=== PATIENT | female | born 1970 | race Caucasian/White ===

== ENCOUNTER 2019-02-10 17:51 | Inpatient (IN) | payer OTHER ==
[2019-02-10] MEDS ORDERED: HYDROCHLOROTHIA25 MG PO (18:12)
[2019-02-10 19:00] VITALS: BP 149/92
--- NOTE | 2019-02-10 19:08 | NUR ---
MENTAL HEALTH RN AT BEDSIDE FOR EVALUATION
[2019-02-10 19:18] LABS: BASOPHILS 0.1 % (0-2); EOSINOPHILS 0.1 % (0-7); HEMATOCRIT 39.8 % (36.0-48.0); HEMOGLOBIN 13.9 g/dL (12-16); IMMATURE GRANULOCYTES 0.3 % (0-5); LYMPHOCYTES 19.4 % (15-50); MCH 30.9 pg (26.0-34.0); MCHC 34.9 g/dL (31.0-37.0); MCV 88.4 fL (80.0-100.0); MEAN PLATELET VOLUME 9.8 fL (7.4-10.4); MONOCYTES 8.4 % (2-11); NEUTROPHILS 71.7 % (40-80); RDW 13.5 % (11.5-14.5); WBC 14.4 10x3/uL (4.8-10.8)
[2019-02-10 19:19] LABS: PLATELET COUNT 452 10x3/uL (130-400)
[2019-02-10 19:25] LABS: ALBUMIN 3.4 g/dL (3.4-5.0); ALKALINE PHOSPHATASE 94 U/L (46-116); ALT (SGPT) 32 U/L (10-68); BILIRUBIN - TOTAL 0.69 mg/dL (0.2-1.3); CALC OSMOLALITY 272 mosm/kg (275-300); CALCIUM 9.3 mg/dL (8.5-10.1); CARBON DIOXIDE 32.2 mmol/L (21.0-32.0); CHLORIDE - SERUM 94 mmol/L (98-107); CREATININE - SERUM 0.7 mg/dL (0.6-1.3); GLUCOSE 112 mg/dL (74-106); PROTEIN - SERUM 7.5 g/dL (6.4-8.2); SODIUM 137 mmol/L (136-145); UREA NITROGEN 6 mg/dL (7-18); eGFR NON AFRICAN AMERICAN > 90 mL/min (90-120)
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
[2019-02-10 19:58] LABS: COLOR STRAW (YELLOW)
[2019-02-10 19:59] LABS: APPEARANCE CLEAR (CLEAR); BILIRUBIN NEGATIVE (NEGATIVE); GLUCOSE NEGATIVE (NEGATIVE); KETONE SMALL mg/dL (NEGATIVE); NITRITE POSITIVE (NEGATIVE); PROTEIN NEGATIVE (NEGATIVE); SPECIFIC GRAVITY 1.005 (1.005-1.020); UROBILINOGEN NORMAL (NORMAL)
[2019-02-10 20:00] LABS: BACTERIA MANY /hpf (NONE SEEN); EPITHELIAL CELLS 0-5 /hpf (0-5); RED CELLS - URINE NONE SEEN /hpf (0-5); WHITE CELLS - URINE 0-5 /hpf (0-5)
--- NOTE | 2019-02-10 20:01 | NUR ---
FAMILY AT BEDSIDE. MENTAL HEALTH RN AT BEDSIDE WAITING FOR ONE ON ONE OBSERVATION TECH. PT LYING IN STRECHER EATING JELLO AND DRINKING WATER.
[2019-02-10 20:02] LABS: UDS - AMPHET NEGATIVE QUAL (NEGATIVE); UDS - BARB NEGATIVE QUAL (NEGATIVE); UDS - BENZO POSITIVE QUAL (NEGATIVE); UDS - COCAINE NEGATIVE QUAL (NEGATIVE); UDS - OPIATE NEGATIVE QUAL (NEGATIVE); UDS - PCP NEGATIVE QUAL (NEGATIVE); UDS - THC POSITIVE QUAL (NEGATIVE)
[2019-02-10 22:00] VITALS: BP 152/87
[2019-02-10 22:44] VITALS: BP 150/98; BMI 30.1
--- NOTE | 2019-02-10 22:58 | NUR ---
PT RECEIVED FROM ER. SITTER AT BEDSIDE. PT BELONGINGS CLOTHES AND PERSONAL ITEMS REMOVED AND PAPER SCRUBS APPLIED. VSS PT SLEEPING COMFORTABLY ALERT ORIENTED X4. RESTING COMFORTABLY WILL CONTINUE TO MONITOR
[2019-02-10 23:00] VITALS: BP 131/82
[2019-02-11] VITALS (24 sets, daily range): BP systolic 114–158; BP diastolic 62–113
--- NOTE | 2019-02-11 01:04 | NUR ---
POTASSIUM READ BACK 2.7 WILL ADM PER PROTOCL
[2019-02-11 03:29] LABS: BASOPHILS 0.1 % (0-2); EOSINOPHILS 0.4 % (0-7); HEMATOCRIT 39.3 % (36.0-48.0); HEMOGLOBIN 13.4 g/dL (12-16); IMMATURE GRANULOCYTES 0.3 % (0-5); LYMPHOCYTES 21.1 % (15-50); MCH 30.4 pg (26.0-34.0); MCHC 34.1 g/dL (31.0-37.0); MCV 89.1 fL (80.0-100.0); MEAN PLATELET VOLUME 9.9 fL (7.4-10.4); MONOCYTES 9.5 % (2-11); NEUTROPHILS 68.6 % (40-80); PLATELET COUNT 398 10x3/uL (130-400); RBC 4.41 10x6/uL (4.00-5.40); RDW 13.8 % (11.5-14.5); WBC 15.2 10x3/uL (4.8-10.8)
--- NOTE | 2019-02-11 03:31 | NUR ---
REASSESSMENT COMPLETE PER FLOW SHEET. VSS. NO NEW CHANGES WILL CONTINUE TO MONITOR
[2019-02-11 03:42] LABS: CALC OSMOLALITY 276 mosm/kg (275-300); CALCIUM 8.7 mg/dL (8.5-10.1); CARBON DIOXIDE 32.8 mmol/L (21.0-32.0); CHLORIDE - SERUM 100 mmol/L (98-107); CREATININE - SERUM 0.5 mg/dL (0.6-1.3); GLUCOSE 105 mg/dL (74-106); MAGNESIUM - SERUM 2.1 mg/dL (1.8-2.4); PHOSPHOROUS 3.2 mg/dL (2.5-4.9); POTASSIUM - SERUM 2.8 mmol/L (3.5-5.1); SODIUM 140 mmol/L (136-145); UREA NITROGEN 7 mg/dL (7-18); eGFR NON AFRICAN AMERICAN > 90 mL/min (90-120)
--- NOTE | 2019-02-11 05:45 | NUR ---
k+ replaced per protocol
--- NOTE | 2019-02-11 07:00 | NUR ---
REC'D REPORT AND RESUMED CARE, AAO VSS, DENIES PAIN OR SUICIDAL IDEATION AT THIS TIME, SELF REPOSITIONS, CALL LIGHT IN REACH, SITTER AT BEDSIDE
--- NOTE | 2019-02-11 09:00 | NUR ---
MORNING MEDS GIVEN PER NOV FLOWSHEET
--- NOTE | 2019-02-11 11:00 | NUR ---
INCONTINENT OF DIARRHEA STOOL, SKINCARE AND LINEN CHANGE COMPLETED BY IVANA LIRA GIVEN PER REQUEST, NOO OTHER ACUTE CHANGE FROM PREVIOUS
--- NOTE | 2019-02-11 15:00 | NUR ---
INCONTINENT OF DIARRHEA STOOL, SKINCARE AND LINEN CHANGE COMPLETED
--- NOTE | 2019-02-11 15:26 | NUR ---
DR FRAZIER HERE FOR EVAL, PATIENT WITH NEED INPATIENT PLACEMENT WHEN MEDICALLY STABLE
--- NOTE | 2019-02-11 16:45 | NUR ---
DINNER TRAY TO BEDSIDE, UP TO BEDSIDE FOR MEAL, INDEPENDENT WITH SET UP AND EATING
--- NOTE | 2019-02-11 17:30 | NUR ---
40 MEQ POTASSIUM TO BEDSIDE FOR 3.4 REPEAT POTASSIUM, BROKEN IN HALF FOR EASY SWALLOWING, CAUGHT PATIENT TRYING TO HIDE UNDER COVER WITHOUT TAKING, WATCH SWALLOW AND INSPECTED MOUTH AFTER, SITTER CONTINUES AT BEDSIDE
--- NOTE | 2019-02-11 19:30 | NUR ---
ASSESSMENT PER FLOWSHEET, PT ALERT, ABLE TO ANSWER QUESTIONS AND FOLLOW COMMANDS. HR SR ON CM, DENIES SUICIDAL OR HOMICIDAL IDEATIONS, PPP, RT AC PIV PATENT WITH DRESSING INTACT, NO S/S SWELLING OR REDNESS NOTED. SITTER AT BEDSIDE, PT BED LOW WITH CALL LIGHT IN REACH.VSS
--- NOTE | 2019-02-11 21:10 | NUR ---
NO VISITORS PRESENT AT THIS TIME, PT SITTING IN BED, EXTRA BLANKET PROVIDED PER REQUEST.
--- NOTE | 2019-02-11 23:30 | NUR ---
REASSESSMENT PER FLOWSHEET, NO ACUTE CHANGES NOTED AT THIS TIME, CONT POC.
[2019-02-12] VITALS (11 sets, daily range): BP systolic 126–158; BP diastolic 75–101
--- NOTE | 2019-02-12 04:10 | NUR ---
PT C/O NAUSEA, PRN ZOFRAN 4 MG ADMINISTERED VIA SIVP.
--- NOTE | 2019-02-12 06:04 | NUR ---
CHLORHEXIDINE BATH GIVEN, COMPLETE LINEN CHANGE DONE, PT TOLERATED WITHOUT DIFFICULTY,VSS.
[2019-02-12 06:13] LABS: BASOPHILS 0.1 % (0-2); EOSINOPHILS 0.9 % (0-7); HEMATOCRIT 36.5 % (36.0-48.0); HEMOGLOBIN 12.6 g/dL (12-16); IMMATURE GRANULOCYTES 0.2 % (0-5); LYMPHOCYTES 38.6 % (15-50); MCHC 34.5 g/dL (31.0-37.0); MCV 89.9 fL (80.0-100.0); MEAN PLATELET VOLUME 10.2 fL (7.4-10.4); NEUTROPHILS 51.2 % (40-80); PLATELET COUNT 329 10x3/uL (130-400); RBC 4.06 10x6/uL (4.00-5.40); RDW 14.1 % (11.5-14.5)
[2019-02-12 06:16] LABS: WBC 10.4 10x3/uL (4.8-10.8)
[2019-02-12 06:32] LABS: ALBUMIN 2.6 g/dL (3.4-5.0); ALKALINE PHOSPHATASE 65 U/L (46-116); ALT (SGPT) 25 U/L (10-68); BILIRUBIN - TOTAL 0.47 mg/dL (0.2-1.3); CALC OSMOLALITY 274 mosm/kg (275-300); CALCIUM 8.2 mg/dL (8.5-10.1); CARBON DIOXIDE 25.4 mmol/L (21.0-32.0); CHLORIDE - SERUM 107 mmol/L (98-107); CREATININE - SERUM 0.5 mg/dL (0.6-1.3); GLUCOSE 81 mg/dL (74-106); SODIUM 140 mmol/L (136-145); UREA NITROGEN 5 mg/dL (7-18); eGFR NON AFRICAN AMERICAN > 90 mL/min (90-120)
[2019-02-12 06:33] LABS: POTASSIUM - SERUM 4.2 mmol/L (3.5-5.1)
--- NOTE | 2019-02-12 09:02 | NUR ---
AWAKE, ALERT AND ORIENTED, NO DISTRESS NOTED AT PRESENT. SITTER AT BEDSIDE.
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
--- NOTE | 2019-02-12 14:30 | NUR ---
SR. BISWAS CALLED AND SAID DR. JONES HAS TAKEN THIS PATIENT OFF OF 1:1 AND TO SEND THE AID BACK DOWNSTAIRS, NURSE INFORMED THE CURRENT SITTER. OF THIS
--- NOTE | 2019-02-12 14:55 | NUR ---
CALLED TRANSFER CENTER TO VERIFY IF PAPERWORK HAD BEEN SENT TO THEM, THEY SAID NO, INFORMATION FAXED TO TRANSFER CENTER PER NURSE
--- NOTE | 2019-02-12 16:15 | NUR ---
[facility] CALLED AND STATES, "WE ARE NOT GOING TO HAVE THE CAPABILITY TO TAKE CARE OF THIS PATIENT."
--- NOTE | 2019-02-12 17:27 | NUR ---
PATIENT IS ADAMENT SHE IS GOING HOME TODAY WITH HER FAMILY. CURSES STAFF REGUARDING THIS PROCESS.
--- NOTE | 2019-02-12 17:56 | NUR ---
THIS PATIENT HAS REMOVED ALL EQUIPMENT AND REFUSES TO BE MONITORED
--- NOTE | 2019-02-12 19:54 | NUR ---
BROUGHT COKE PER REQUEST W/O LID/STRAW. IV WITH CATHETER INTACT APPEARS TO BY LYING ON THE FLOOR. ASKED PT TO SEE HER RIGHT ARM, PT REFUSED. ASKED HER IF SHE TOOK OUT THE IV IV IN HER ARM, SHE REPLIED, "I SURE DID." WILL CONTINUE TO MONITOR.
--- NOTE | 2019-02-13 02:10 | NUR ---
PT MOVING ABOUT IN BED, RESTLESS. DENIES ANY NEEDS WHEN ASKED, CONT TO MONITOR.
[2019-02-13 07:00] VITALS: BP 121/88
--- NOTE | 2019-02-13 07:00 | NUR ---
NO AM LAB ORDERED. NO ELECTROLYTE PROTOCAL DONE
--- NOTE | 2019-02-13 08:27 | NUR ---
patient awakes to verbal stimuli, skin warm and dry. not cooperative during exam tired to twist nurses arms when checking bilateral hand sharepoint consultant. states she is here for low potassium. instructed that she needs to stay on radiation monitor low potassium will effect ekg pattern patient will need to be continously monitored. breakfast served ate fair.menu completed by nurse with patient. patient very figity. constantly moving. taking orange peels rubbing on her hands. clean feet with bath wipes. denies pain. refused iv access on last shift.bsc filled with empty containers and trash. monitor sr. vital signs stable.
--- NOTE | 2019-02-13 10:02 | NUR ---
patient laying naked in bed without linen, patient removed linen and gown. states she has bath herself. clean gown and non skid foot rose provided and put on patient. left at bedside first patient did not dress self. assisted up in chair at bedside unsteady gait noted. clean applied to bed. patient provided hair brush and hair tie provided. patient states she will sign papers to go to in patient psych center. states she has been in them before they don't help. po meds taken without difficulty. patient states that its other people mind that need help not hers.
--- NOTE | 2019-02-13 10:24 | NUR ---
patient removed monitor and storage bin tender and leads, states she does not want" that sticky sh*t on her body". explain why we need patient no one needs to look at that.
[2019-02-13 11:00] VITALS: BP 161/119
--- NOTE | 2019-02-13 11:30 | NUR ---
LUNCH SERVED ATE SOME OF LUNCH SOME ON FLOOR, SOME ALL OVER TRAY. DID NOT EAT HAMBURGER. PO FLUIDS TAKEN WELL.
--- NOTE | 2019-02-13 12:21 | NUR ---
PT IS AGITATED AND WANTS TO BE LEFT ALONE. PT STATED, "I WILL GO WHERE EVER I HAVE TO TO GET AWAY FROM HERE."
[2019-02-13 13:00] VITALS: BP 155/91
--- NOTE | 2019-02-13 13:00 | NUR ---
RUBBING EMPTY WIPE PACKAGE ON ARMS. NEW WIPES AND LOTION PROVIDED.
--- NOTE | 2019-02-13 13:50 | NUR ---
LUNCH SERVED ATE SOME, MOST FOUND ON FLOOR. HAIR BRUSH ON FLOOR, LOUD AT TIMES MAKE STATEMENTS.
--- NOTE | 2019-02-13 14:05 | NUR ---
UP ON BSC UNSTEADY GAIT. VOIDED. RETURNED TO CHAIR. THEN RETURNED TO BED. WIPES FOUND IN SINK AND FLOOR. TRASH ALL OVER FLOOR. CUPS FROM LUNCH, STRAWS, HAIR BRUSH AND HAIR. BLOOD PRESSURE RECHECKED.
[2019-02-13 15:00] VITALS: BP 159/98
--- NOTE | 2019-02-13 16:00 | NUR ---
VISITORS HERE. MOTHER IN LAW. PATIENT'S MOTHER CALLED ON PHONE FOR UPDATE AFTER CODE WORD PROVIDED
--- NOTE | 2019-02-13 16:30 | NUR ---
DINNER TRAY SERVED ATE SMALL AMOUNT. SAT UP ON SIDE OF BED. STILL THROWING ITEMS ON FLOOR STRAWS. PART OF SALAD FROM TRAY.
[2019-02-13 18:00] VITALS: BP 147/98
--- NOTE | 2019-02-13 18:22 | NUR ---
LAYING IN BED IN CONSTANT MOTION WITH FINGERS RUBBING OTHER FINGERS, RUBING ARMS. PLAYING WITH HAIR. CALL LIGHT WITHIN HANDS REACH
--- NOTE | 2019-02-13 18:33 | NUR ---
TALKED WITH CALL CENTER TWICE TO DAY, GIVEN UPDATE ON PATIENT CONDITION. STATES 18 PLACES THEY HAVE SENT PATIENT INFORMATION TOO. LOCAL FACILITIES HAVE NO BEDS [place]. DECLINED BY [facility]. OTHER FACILTIIES STILL LOOKING- [facility], [facility], [facility], [facility].
--- NOTE | 2019-02-13 18:57 | NUR ---
TRANSFER CENTER CALLED, NO BEDS AVAILABLE AND STILL WAITING ON DECISION FOR OTHERS.
[2019-02-13 19:15] VITALS: BP 151/86
--- NOTE | 2019-02-13 19:30 | NUR ---
RECIEVED CARE OF PT, ASSESSMENT PER FLOWSHEET. PT ALERT AND ORIENTED, DENIES ANY SUICIDAL OR HOMICIDAL IDEATION AT THIS TIME, SR ON CM, SNACK PROVIDED PER REQUEST.
--- NOTE | 2019-02-13 21:31 | NUR ---
PT DAUGHTER IN FOR VISITATION, PT CONVERSING EASILY, CONT TO MONITOR.
--- NOTE | 2019-02-13 23:50 | NUR ---
DECAF COFFEE WITH SUGAR PROVIDED PER REQUEST, ALL OTHER NEEDS DENIED, CONTINUES TO REFUSE MONITORING. CALL LIGHT IN REACH
--- NOTE | 2019-02-14 01:38 | NUR ---
PT C/O NAUSEA, PRN ZOFRAN 4 MG ADMINISTERED VIA SIVP.
--- NOTE | 2019-02-14 01:40 | NUR ---
ASSISTED PT TO BSC, VOIDED, ABLE TO PROVIDE OWN PERICARE AND GET BACK IN BED. DENIES ANY OTHER NEEDS.
--- NOTE | 2019-02-14 06:12 | NUR ---
PT SITTING UP IN BED, CONTINUES TO REFUSE EKG MONITORING, CALL LIGHT IN REACH. NO S/S OF DISTRESS NOTED.
[2019-02-14 07:00] VITALS: BP 122/53
--- NOTE | 2019-02-14 09:35 | NUR ---
0700 SITTING ON SIDE OF BED NO DISTRESS NOTED REFUSED TO WEAR MONITOR AND BP CUFF BREAKFAST TRAY SERVED APPETITE GOOD ASSESSMENT COMPLETE WAITING FOR PLACEMENTIN OTHER FACILITY
--- NOTE | 2019-02-14 09:37 | NUR ---
0900 AMBULATING IN ROOM INDEPENDENTLY VOIDED ON BEDSIDE COMMODE RERTURNED TO CHAIR GOWN CHANGED MEDS TAKEN WITHOUT RESISTANCE
--- NOTE | 2019-02-14 09:40 | NUR ---
NUTRITION F/U NURSING REPORTS PT WITH GOOD PO INTAKE NOW. WILL CONTINUE TO PROVIDE DIET, HONOR FOOD PREFERENCES. RD FOLLOWING
--- NOTE | 2019-02-14 09:59 | NUR ---
1000 ATTEMPTED TO GIVE PATIENT AN CHG BATH PATIENT REFUSED
[2019-02-14 11:00] VITALS: BP 150/84
[2019-02-14 11:11] LABS: BASOPHILS 0.2 % (0-2); HEMATOCRIT 39.6 % (36.0-48.0); HEMOGLOBIN 13.5 g/dL (12-16); IMMATURE GRANULOCYTES 0.1 % (0-5); LYMPHOCYTES 29.6 % (15-50); MCH 30.5 pg (26.0-34.0); MCHC 34.1 g/dL (31.0-37.0); MCV 89.4 fL (80.0-100.0); MEAN PLATELET VOLUME 10.4 fL (7.4-10.4); MONOCYTES 8.5 % (2-11); NEUTROPHILS 60.6 % (40-80); PLATELET COUNT 317 10x3/uL (130-400); RBC 4.43 10x6/uL (4.00-5.40); WBC 8.2 10x3/uL (4.8-10.8)
--- NOTE | 2019-02-14 11:11 | NUR ---
1030 RECEIVED CALL FROM TRANSFER CENTER ASKING SPECIFICS ON PATIENTS NEEDS. STATED WULL CALL BACK THEY THINK THEY HAVE A FACILITY TO ACCEPT THIS PATIENT
[2019-02-14 11:14] LABS: CALC OSMOLALITY 277 mosm/kg (275-300); CARBON DIOXIDE 27.2 mmol/L (21.0-32.0); CHLORIDE - SERUM 105 mmol/L (98-107); CREATININE - SERUM 0.7 mg/dL (0.6-1.3); GLUCOSE 110 mg/dL (74-106); POTASSIUM - SERUM 3.9 mmol/L (3.5-5.1); SODIUM 139 mmol/L (136-145); UREA NITROGEN 9 mg/dL (7-18); eGFR NON AFRICAN AMERICAN > 90 mL/min (90-120)
--- NOTE | 2019-02-14 11:29 | NUR ---
1121 PATIENT ACCEPTED TO [facility] DR SHANNEN PAREDES ACCEPTING MD WILL CALL BACK WITH ROOM NUMBER
--- NOTE | 2019-02-14 13:17 | NUR ---
1244 APPETITE GOOD CONSUMED 75% LUNCH
--- NOTE | 2019-02-14 13:18 | NUR ---
1300 PT SIGNED AGREEMENT TO TRANSFER WAITING ON ROOM NUMBER
--- NOTE | 2019-02-14 13:53 | MORECARE ---
CASE MANAGEMENT DISCHARGE SUMMARY PATIENT: LENNOX KERN UNIT: [id number] ADM DATE: 02/10/19 AGE: 48 : [birth year] SEX: F [facility] AUTHOR: TAYLOR GARCIA PHYSICIAN: REFERRING PHYSICIAN: RITCHIE BUSTAMANTE MD DATE OF SERVICE: 02/14/19 Discharge Plan Patient Name: LENNOX KERN Facility: [facility]:[place] : 1970 Planned Disposition: Psych facility Anticipated Discharge Date: Discharge Date: Expected LOS: Initial Reviewer: [email or web address] Initial Review Date: 02/14/2019 Generated: 02/14/19 2:53 pm Patient Name: LENNOX KERN Page 38639 at 1353 All edits/amendments must be made on the electronic document DICTATION DATE: 02/14/19 1353 UNIT SECY: SEAN 02/14/19 1353 RPT#: [id number] DC DATE: STATUS: ADM IN [facility] [address] [place] [address] END OF REPORT
--- NOTE | 2019-02-14 14:00 | MORECARE ---
CASE MANAGEMENT DISCHARGE SUMMARY PATIENT: LENNOX KERN UNIT: [id number] ADM DATE: 02/10/19 AGE: 48 : [birth year] SEX: F ROOM/BED: D.2307 AUTHOR: TAYLOR GARCIA PHYSICIAN: REFERRING PHYSICIAN: RITCHIE BUSTAMANTE MD DATE OF SERVICE: 02/14/19 Discharge Plan Patient Name: LENNOX KERN Facility: [facility]:[place] : 1970 Planned Disposition: Psych facility Anticipated Discharge Date: Discharge Date: Expected LOS: Initial Reviewer: [email or web address] Initial Review Date: 02/14/2019 Generated: 02/14/19 3:00 pm Comments DCP- Discharge Planning Updated by [email or web address]: Arabella Soares on 02/14/19 12:[address] Patient Name: LENNOX KERN Admission Status: ER Accout number: [id number] Admission Date: 02-10-2019 : 1970 Admission Diagnosis:HYPOKALEMIA Attending: RITCHIE BUSTAMANTE Current LOS: 4 Anticipated DC Date: Planned Disposition: Psych facility Primary Insurance: [employer] MANAGED MEDICAID Discharge Planning Comments: PATIENT HAS HAD PSYCH EVAL AND PLAN IS FOR PATIENT TO GO TO INPATIENT PSYCH FACILITY. NURSING SENT RECORDS TO TRANSFER CENTER OVER WEEKEND FOR PLACEMENT. CM CONTACTED TRANSFER CENTER REGARDING PLACEMENT THEY ARE STILL SENDING REQUEST OUT THIS AM. NURSING STATED PATIENT HAS BEEN ACCEPTING TO [facility] IN [place]. AWAITING TO FIND OUT ROOM NUMBER AND CALL REPORT. CM WILL CONTINUE TO FOLLOW AND ASSIST NEEDED WITH DISCHARGE PLANNING / NEEDS. Manager Retail: Arabella Soares Last DP export: 02/14/19 12:53 p Patient Name: LENNOX KERN Page 42852 at 1400 All edits/amendments must be made on the electronic document DICTATION DATE: 02/14/19 1400 UNIX DEVELOPER: SEAN 02/14/19 1400 RPT#: [id number] DC DATE: STATUS: ADM IN [facility] [address] [place] [address] END OF REPORT
--- NOTE | 2019-02-14 14:51 | NUR ---
4435 CALLED TRANSFER CENTER FOR ROOM NUMBER. STATED THEY WOULD FIND OUT AND CALL ME BACK
--- NOTE | 2019-02-14 16:08 | NUR ---
1600 ACQUIRED ROOM NUMBER CALLED REPORT TO [id number] SPOKE WITH MASSIMO WELSH
--- NOTE | 2019-02-14 16:10 | NUR ---
1605 CALLED AMBULANCE FOR PICK-UP PAPERWORK SIGNED BY COAL CUTTER
--- NOTE | 2019-02-14 16:25 | NUR ---
1625 LEFT WITH AMBULANCE TRANSPORT TO [facility] IN [place] AT BEDSIDE AND AWARE
--- NOTE | 2019-02-15 11:30 | MORECARE ---
CASE MANAGEMENT DISCHARGE SUMMARY PATIENT: LENNOX KERN UNIT: [id number] ADM DATE: 02/10/19 AGE: 48 : [birth year] SEX: F ROOM/BED: D.2307 AUTHOR: TAYLOR GARCIA PHYSICIAN: REFERRING PHYSICIAN: RITCHIE BUSTAMANTE MD DATE OF SERVICE: 02/15/19 Discharge Plan Patient Name: LENNOX KERN Facility: [facility]:[place] : 1970 Planned Disposition: Psych facility Anticipated Discharge Date: Discharge Date: 02/14/2019 Expected LOS: Initial Reviewer: [email or web address] Initial Review Date: 02/14/2019 Generated: 02/15/19 12:30 pm DCP- Discharge Planning Updated by [email or web address]: Arabella Soares on 02/14/19 12:[address] Patient Name: LENNOX KERN Admission Status: ER Accout number: [id number] Admission Date: 02-10-2019 : 1970 Admission Diagnosis:HYPOKALEMIA Attending: RITCHIE BUSTAMANTE Current LOS: 4 Anticipated DC Date: Planned Disposition: Psych facility Primary Insurance: [employer] MANAGED MEDICAID Discharge Planning Comments: PATIENT HAS HAD PSYCH EVAL AND PLAN IS FOR PATIENT TO GO TO INPATIENT PSYCH FACILITY. NURSING SENT RECORDS TO TRANSFER CENTER OVER WEEKEND FOR PLACEMENT. CM CONTACTED TRANSFER CENTER REGARDING PLACEMENT THEY ARE STILL SENDING REQUEST OUT THIS AM. NURSING STATED PATIENT HAS BEEN ACCEPTING TO [facility] IN [place]. AWAITING TO FIND OUT ROOM NUMBER AND CALL REPORT. CM WILL CONTINUE TO FOLLOW AND ASSIST NEEDED WITH DISCHARGE PLANNING / NEEDS. Supervisor Stave Finishing: Arabella Soares Last DP export: 02/14/19 1:00 p Patient Name: LENNOX KERN Page 25133 at 1130 All edits/amendments must be made on the electronic document DICTATION DATE: 02/15/19 1130 PRINCIPAL TECHNICAL SPECIALIST: SEAN 02/15/19 1130 RPT#: [id number] DC DATE:02/14/19 STATUS: DIS IN [facility] [address] [place] [address] END OF REPORT
== END 2019-02-14 17:41 | disposition short-term general hospital (02) | DRG 640 ==
LOC: D.ER 17:51 → D.ICU 21:25 → OBSVTIME 21:25 → D.ICU 21:25
PROVIDERS: Emergency Medicine; Family Medicine; ADMIT Internal Medicine Nephrology; ATTEND Internal Medicine Nephrology
DX: E87.6 Hypokalemia (principal); G93.41 Metabolic encephalopathy; R45.851 Suicidal ideations; N39.0 Urinary tract infection, site not specified; F17.203 Nicotine dependence unspecified, with withdrawal; R45.850 Homicidal ideations; F29 Unspecified psychosis not due to a substance or known physiological condition; F41.8 Other specified anxiety disorders; G47.33 Obstructive sleep apnea (adult) (pediatric); F31.9 Bipolar disorder, unspecified; F10.10 Alcohol abuse, uncomplicated; I10 Essential (primary) hypertension